=== PATIENT | female | born 1950 | race Caucasian/White ===

== ENCOUNTER → 2016-07-18 | Outpatient (CLI) | payer MEDICARE, OTHER ==
[~2016-07-18] MED LIST: AMLO5TAB4 PO; ASP81TEC PO; ASPI-983 PO; LISI1TAB PO; LISI1TAB8 PO; LOSA1TAB9 PO; LUTE1CAP4 PO; MELO-198 PO; MULT1TAB69 PO; OMEG1CAP58 PO; SIMV40TA4 PO
--- OUTSIDE RECORDS SUMMARY | 2016-07-18 13:24 | XMS REPORT | Continuity of Care Document ---
Author Author [facility] Organization [facility] Address Unknown Phone Unavailable Allergies Active Description Code Type Severity Reaction Onset Reported/Identified Relationship to Patient Clinical Status Yes meperidine HCl [id number] Drug Allergy Unknown N/A 01/12/2015 Yes Iodinated Contrast Media - IV Dye [id number] Drug Allergy Moderate RASH 12/23/2015 Yes adhesive tape [id number] Drug Allergy Mild RASH 12/23/2015 Yes meperidine HCl [id number] Drug Allergy Unknown NAUSEA 12/23/2015 Medications Problems Date Dx Coded Attending Type Code Diagnosis Diagnosed By 11/19/2014 Ot 611.72 11/19/2014 Ot V76.12 11/19/2014 Ot 610.0 11/19/2014 Ot 793.81 11/19/2014 Ot 793.89 11/19/2014 Ot 424.0 11/19/2014 Ot 786.09 11/19/2014 Ot 786.50 11/19/2014 Ot V76.12 11/19/2014 ANGELLA TEJEDA MD Ot V76.12 12/10/2014 ANGELLA TEJEDA MD Ot V76.12 12/29/2014 ANGELLA TEJEDA MD Ot V76.12 01/12/2015 LOLIS ZUÑIGA, BESSIE Goldstein Ot 211.3 BENIGN NEOPLASM LG BOWEL 01/12/2015 BESSIE DANIELLE MD Ot 530.10 ESOPHAGITIS NOS 01/12/2015 BESSIE DANIELLE MD Ot 562.10 DIVERTICULOSIS COLON (W/O MENT OF HEMORR 01/12/2015 LOLIS ZUÑIGA, BESSIE Goldstein Ot 787.20 DYSPHAGIA, UNSPECIFIED 01/12/2015 BESSIE DANIELLE MD Ot V76.51 SCREEN MAL NEOP-COLON 12/24/2015 AIDEE DICKINSON MD Ot F41.9 ANXIETY DISORDER, UNSPECIFIED 12/24/2015 AIDEE DICKINSON MD Ot I10 ESSENTIAL (PRIMARY) HYPERTENSION 12/24/2015 AIDEE DICKINSON MD Ot R00.1 BRADYCARDIA, UNSPECIFIED 12/24/2015 AIDEE DICKINSON MD Ot R06.00 DYSPNEA, UNSPECIFIED 12/24/2015 AIDEE DICKINSON MD Ot R07.9 CHEST PAIN, UNSPECIFIED 01/31/2016 Ot 793.81 MAMMOGRAPHIC MICROCLACIFICATION 01/31/2016 Ot 793.89 OTH (ABN) FINDINGS ON RADIOLOGICAL EXAMI 01/31/2016 Ot 424.0 MITRAL VALVE DISORDER 01/31/2016 Ot 786.09 RESPIRATORY ABNORM NEC 01/31/2016 Ot 786.50 CHEST PAIN NOS 01/31/2016 Ot V76.12 OTH SCREEN MAMMO-MALIGN NEOPLASM OF [place] 01/31/2016 ANGELLA TEJEDA MD Ot V76.12 OTH SCREEN MAMMO-MALIGN NEOPLASM OF [place] 01/31/2016 ANGELLA TEJEDA MD Ot V76.12 OTH SCREEN MAMMO-MALIGN NEOPLASM OF [place] 01/31/2016 Ot V72.84 EXAM PRE-OPERATIVE NOS 01/31/2016 Ot V76.51 SCREEN MAL NEOP-COLON 01/31/2016 Ot 793.81 MAMMOGRAPHIC MICROCLACIFICATION 01/31/2016 Ot 793.89 OTH (ABN) FINDINGS ON RADIOLOGICAL EXAMI 01/31/2016 Ot 424.0 MITRAL VALVE DISORDER 01/31/2016 Ot 786.09 RESPIRATORY ABNORM NEC 01/31/2016 Ot 786.50 CHEST PAIN NOS 01/31/2016 Ot V76.12 OTH SCREEN MAMMO-MALIGN NEOPLASM OF [place] 01/31/2016 ANGELLA TEJEDA MD Ot V76.12 OTH SCREEN MAMMO-MALIGN NEOPLASM OF [place] 01/31/2016 ANGELLA TEJEDA MD Ot V76.12 OTH SCREEN MAMMO-MALIGN NEOPLASM OF [place] 01/31/2016 Ot V72.84 EXAM PRE-OPERATIVE NOS 01/31/2016 Ot V76.51 SCREEN MAL NEOP-COLON 02/01/2016 KHADRA GARDNER Ot F41.9 ANXIETY DISORDER, UNSPECIFIED 02/01/2016 KHADRA GARDNER Ot I10 ESSENTIAL (PRIMARY) HYPERTENSION 02/01/2016 KHADRA GARDNER Ot R06.00 DYSPNEA, UNSPECIFIED 02/01/2016 JOCELYN CARROLL KHADRA K Ot R07.89 OTHER CHEST PAIN 02/01/2016 KHADRA GARDNER Ot F41.9 ANXIETY DISORDER, UNSPECIFIED 02/01/2016 KHADRA GARDNER Ot I10 ESSENTIAL (PRIMARY) HYPERTENSION 02/01/2016 JOCELYN CARROLL KHADRA K Ot R06.00 DYSPNEA, UNSPECIFIED 02/01/2016 KHADRA GARDNER Ot R07.89 OTHER CHEST PAIN 02/16/2016 AIDEE DICKINSON MD Ot E78.5 HYPERLIPIDEMIA, UNSPECIFIED 02/16/2016 AIDEE DICKINSON MD Ot F41.9 ANXIETY DISORDER, UNSPECIFIED 02/16/2016 AIDEE DICKINSON MD Ot I10 ESSENTIAL (PRIMARY) HYPERTENSION 02/16/2016 AIDEE DICKINSON MD Ot I25.10 ATHSCL HEART DISEASE OF [place] CORONARY 02/16/2016 AIDEE DICKINSON MD Ot R06.09 OTHER FORMS OF DYSPNEA 02/16/2016 AIDEE DICKINSON MD Ot R07.89 OTHER CHEST PAIN 02/16/2016 AIDEE DICKINSON MD Ot Z79.899 OTHER SENIOR LIVING (CURRENT) DRUG THERAPY 02/22/2016 KHADRA GARDNER Ot F41.9 ANXIETY DISORDER, UNSPECIFIED 02/22/2016 KHADRA GARDNER Ot I10 ESSENTIAL (PRIMARY) HYPERTENSION 02/22/2016 KHADRA GARDNER Ot R06.00 DYSPNEA, UNSPECIFIED 02/22/2016 KHADRA GARDNER Ot R07.89 OTHER CHEST PAIN Procedures Results Test Result Range Automated blood complete blood count (hemogram) panel - 12/23/15 10:10 Blood leukocytes automated count (number/volume) 7.1 10*3/ uL 4.3-11.0 Blood erythrocytes automated count (number/volume) 4.91 10*6 /uL 4.35-5.85 Venous blood hemoglobin measurement (mass/volume) 15.0 g/dL 11.5-16.0 Blood hematocrit (volume fraction) 44 % 35-52 Automated erythrocyte mean corpuscular volume 90 [foz_us] 80-99 Automated erythrocyte mean corpuscular hemoglobin (mass per erythrocyte) 31 pg 25-34 Automated erythrocyte mean corpuscular hemoglobin concentration measurement ( mass/volume) 34 g/dL 32-36 Automated erythrocyte distribution width ratio 13.2 % 10.0-14.5 Automated blood platelet count (count/volume) 211 10*3/uL 130-400 Automated blood platelet mean volume measurement 9.2 [foz_us ] 7.4-10.4 PT panel in platelet poor plasma by coagulation assay - 12/23/15 10:10 Prothrombin time (PT) in platelet poor plasma by coagulation assay 12.2 s 12.2-14.7 INR in platelet poor plasma or blood by coagulation assay 0.9 0.8-1.4 Activated partial thromboplastin time (aPTT) in platelet poor plasma bycoagulation assay - 12/23/15 10:10 Activated partial thromboplastin time (aPTT) in platelet poor plasma bycoagulation assay 26 s 24-35 Comprehensive metabolic panel - 12/23/15 10:10 Serum or plasma sodium measurement (moles/volume) 140 mmol/ L 135-145 Serum or plasma potassium measurement (moles/volume) 3.8 mmol/L 3.6-5.0 Serum or plasma chloride measurement (moles/volume) 103 mmol /L 98-107 Carbon dioxide 28 mmol/L 21-32 Serum or plasma anion gap determination (moles/volume) 9 mmol/L 5-14 Serum or plasma urea nitrogen measurement (mass/volume) 18 mg/dL 7-18 Serum or plasma creatinine measurement (mass/volume) 0.68 mg /dL 0.60-1.30 Serum or plasma urea nitrogen/creatinine mass ratio 26 NRG Serum or plasma creatinine measurement with calculation of estimated glomerular filtration rate > NRG Serum or plasma glucose measurement (mass/volume) 94 mg/dL 70-105 Serum or plasma calcium measurement (mass/volume) 9.7 mg/dL 8.5-10.1 Serum or plasma total bilirubin measurement (mass/volume) 0.6 mg/dL 0.1-1.0 Serum or plasma alkaline phosphatase measurement (enzymatic activity/volume) 105 U/L 40-136 Serum or plasma aspartate aminotransferase measurement (enzymatic activity/ volume) 26 U/L 5-34 Serum or plasma alanine aminotransferase measurement (enzymatic activity/volume ) 25 U/L 0-55 Serum or plasma protein measurement (mass/volume) 7.8 g/dL 6.4-8.2 Serum or plasma albumin measurement (mass/volume) 3.9 g/dL 3.2-4.5 Serum or plasma troponin i.cardiac measurement (mass/volume) - 12/23/15 10:10 Serum or plasma troponin i.cardiac measurement (mass/volume) < ng/mL <0.30 Lipid 1996 panel - 12/23/15 10:10 Serum or plasma triglyceride measurement (mass/volume) 213 mg/dL <150 Serum or plasma cholesterol measurement (mass/volume) 218 mg /dL < 200 Serum or plasma cholesterol in HDL measurement (mass/volume) 52 mg/dL 40-60 Cholesterol in LDL [mass/volume] in serum or plasma by direct assay 141 mg/dL 1-129 Serum or plasma cholesterol in VLDL measurement (mass/volume) 43 mg/dL 5-40 Serum or plasma lithium measurement (moles/volume) - 12/23/15 10:10 BNP level 26.0 pg/mL <100.0 THYROID STIMULATING HORMONE - 12/23/15 10:10 THYROID STIMULATING HORMONE 1.91 u[iU]/mL 0.35-4.94 Methicillin resistant Staphylococcus aureus (MRSA) screening culture - 13:20 Methicillin resistant Staphylococcus aureus (MRSA) screening culture NEG NRG Automated blood complete blood count (hemogram) panel - 02/16/16 07:24 Blood leukocytes automated count (number/volume) 7.7 10*3/ uL 4.3-11.0 Blood erythrocytes automated count (number/volume) 4.89 10*6 /uL 4.35-5.85 Venous blood hemoglobin measurement (mass/volume) 15.1 g/dL 11.5-16.0 Blood hematocrit (volume fraction) 45 % 35-52 Automated erythrocyte mean corpuscular volume 91 [foz_us] 80-99 Automated erythrocyte mean corpuscular hemoglobin (mass per erythrocyte) 31 pg 25-34 Automated erythrocyte mean corpuscular hemoglobin concentration measurement ( mass/volume) 34 g/dL 32-36 Automated erythrocyte distribution width ratio 13.8 % 10.0-14.5 Automated blood platelet count (count/volume) 239 10*3/uL 130-400 Automated blood platelet mean volume measurement 9.5 [foz_us ] 7.4-10.4 Complete urinalysis with reflex to culture - 02/16/16 07:24 Urine color determination YELLOW NRG Urine clarity determination CLEAR NRG Urine pH measurement by test strip 6 5- 9 Specific gravity of urine by test strip 1.020 1.016-1.022 Urine protein assay by test strip, semi-quantitative NEGATIVE NEGATIVE Urine glucose detection by automated test strip NEGATIVE NEGATIVE Erythrocytes detection in urine sediment by light microscopy 2+ NEGATIVE Urine ketones detection by automated test strip NEGATIVE NEGATIVE Urine nitrite detection by test strip NEGATIVE NEGATIVE Urine total bilirubin detection by test strip NEGATIVE NEGATIVE Urine urobilinogen measurement by automated test strip (mass/volume) NORMAL NORMAL Urine leukocyte esterase detection by dipstick NEGATIVE NEGATIVE Automated urine sediment erythrocyte count by microscopy (number/high power field) NONE NRG Automated urine sediment leukocyte count by microscopy (number/high power field ) [HPF] NRG Bacteria detection in urine sediment by light microscopy NEGATIVE NRG Squamous epithelial cells detection in urine sediment by light microscopy 5-10 NRG Crystals detection in urine sediment by light microscopy NONE NRG Casts detection in urine sediment by light microscopy NONE NRG Mucus detection in urine sediment by light microscopy NEGATIVE NRG Complete urinalysis with reflex to culture NO NRG PT panel in platelet poor plasma by coagulation assay - 02/16/16 07:24 Prothrombin time (PT) in platelet poor plasma by coagulation assay 11.9 s 12.2-14.7 INR in platelet poor plasma or blood by coagulation assay 0.9 0.8-1.4 Activated partial thromboplastin time (aPTT) in platelet poor plasma bycoagulation assay - 02/16/16 07:24 Activated partial thromboplastin time (aPTT) in platelet poor plasma bycoagulation assay 27 s 24-35 Comprehensive metabolic panel - 02/16/16 07:24 Serum or plasma sodium measurement (moles/volume) 140 mmol/ L 135-145 Serum or plasma potassium measurement (moles/volume) 3.5 mmol/L 3.6-5.0 Serum or plasma chloride measurement (moles/volume) 104 mmol /L 98-107 Carbon dioxide 23 mmol/L 21-32 Serum or plasma anion gap determination (moles/volume) 13 mmol/L 5-14 Serum or plasma urea nitrogen measurement (mass/volume) 21 mg/dL 7-18 Serum or plasma creatinine measurement (mass/volume) 0.77 mg /dL 0.60-1.30 Serum or plasma urea nitrogen/creatinine mass ratio 27 NRG Serum or plasma creatinine measurement with calculation of estimated glomerular filtration rate > NRG Serum or plasma glucose measurement (mass/volume) 101 mg/dL 70-105 Serum or plasma calcium measurement (mass/volume) 9.5 mg/dL 8.5-10.1 Serum or plasma total bilirubin measurement (mass/volume) 0.5 mg/dL 0.1-1.0 Serum or plasma alkaline phosphatase measurement (enzymatic activity/volume) 109 U/L 40-136 Serum or plasma aspartate aminotransferase measurement (enzymatic activity/ volume) 32 U/L 5-34 Serum or plasma alanine aminotransferase measurement (enzymatic activity/volume ) 40 U/L 0-55 Serum or plasma protein measurement (mass/volume) 8.0 g/dL 6.4-8.2 Serum or plasma albumin measurement (mass/volume) 4.2 g/dL 3.2-4.5 Methicillin resistant Staphylococcus aureus (MRSA) screening culture - 07:24 Methicillin resistant Staphylococcus aureus (MRSA) screening culture NEG NRG Encounters ACCT No. Visit Date/Time Discharge Status Pt. Type Provider Facility Loc./Unit Complaint [id number] 02/16/2016 06:49:00 2015 13:42:00 DIS Outpatient AIDEE DICKINSON MD [facility] CATH ABN STRESS,HTN,CP,SOB [id number] 12/23/2015 09:46:00 2015 12:45:00 DIS Inpatient AIDEE DICKINSON MD [facility] ICU HYPERTENSIVE URGENCY [id number] 01/12/2015 07:44:00 2014 11:25:00 DIS Outpatient BESSIE DANIELLE MD [facility] SDC SCREENING [id number] 11/19/2014 09:53:00 2014 23:59:59 CLS Outpatient ANGELLA TEJEDA MD [facility] RAD SCREENING [id number] 09/12/2013 09:58:00 2013 23:59:59 CLS Outpatient ANGELLA TEJEDA MD [facility] RAD SCREENING [id number] 01/31/2016 07:31:00 ACT Outpatient KHADRA SAVAGE [facility] CARD CHEST PAIN,HTN, ANXIETY [id number] 01/06/2015 06:29:00 Document Registration [id number] 11/19/2014 09:44:00 Document Registration [id number] 08/01/2012 10:22:00 Document Registration [id number] 08/15/2011 15:13:00 Document Registration [id number] 12/07/2010 09:03:00 Document Registration [id number] 08/10/2010 08:02:00 Document Registration [id number] 07/28/2010 09:41:00 Document Registration
--- NOTE | 2016-07-20 19:21 | Diagnostic Imaging Report ---
Bilateral screening mammogram. The current study was also evaluated with a Computer Aided Detection (CAD) system. INDICATION: Screening. No current complaints stated on the questionnaire. COMPARISON: 11/19/2014. FINDINGS: The breasts are composed of scattered fibroglandular densities. There are occasional benign-appearing calcifications. Allowing for technique and positional differences, no suspicious change is seen. IMPRESSION: No significant change. ACR BI-RADS Category 2: Benign findings. Result letter will be mailed to the patient. Note: At least 10% of breast cancer is not imaged by mammography. Dictated by: Dictated on workstation # [id number]
== END ==
LOC: RAD 13:20
PROVIDERS: ATTEND Obstetrics & Gynecology
DX: Z12.31 Encounter for screening mammogram for malignant neoplasm of breast (principal)
CPT/HCPCS: 77067

== ENCOUNTER → 2016-10-25 | Outpatient (CLI) | payer MEDICARE, OTHER ==
[~2016-10-25] MED LIST changes: +CATHETER FLUSH 10 ML SYR IV PRN; +IOHEXOL 350 MG/ML 150 ML (OMNIPAQUE 350) VIAL IV ONE; +NS 100 ML (IVPB) BAG IV ONE
[2016-10-25 10:06] LABS: BLOOD UREA NITROGEN 22 MG/DL (7-18); BUN/CREATININE RATIO 30 (0-20); CREATININE SERUM 0.74 MG/DL (0.60-1.30); GFR ESTIMATED > 60
--- NOTE | 2016-10-25 11:57 | Diagnostic Imaging Report ---
PROCEDURE: CT angiography of the abdomen and chest with and without contrast. TECHNIQUE: After intravenous administration of contrast, thin section axial CT angiography of the abdomen and chest were obtained. Multiple MIP reformats were provided. INDICATION: Chest pain. Dyspnea. CONTRAST: 125 mL of Omnipaque 350 is administered intravenously. FINDINGS: CTA chest: The pulmonary arteries are well opacified with no filling defects to suggest pulmonary embolism. The thoracic aorta is normal in caliber. There is no dissection or aneurysm. The lungs demonstrate no significant consolidation. There is mild atelectasis in the lung bases. No mass or suspicious nodule is identified. The heart size is normal. There is no mediastinal mass or lymphadenopathy. There is no hilar adenopathy. No axillary lymphadenopathy is seen. The osseous structures demonstrate right convexity scoliosis and degenerative changes. CTA abdomen: The abdominal aorta is normal in caliber. There is a mild osteoarthritic plaque with no dissection, aneurysm or significant stenosis. The celiac trunk, the SMA, and the right renal artery are patent. The left renal artery demonstrates an ostial plaque with mild stenosis suggested. The ROSALES is patent. The aortic bifurcation and the proximal aspect of the common iliac arteries are also patent. There is a 2.8 cm simple cyst in the mid left kidney and 2.8 cm simple cyst in the upper pole of the right kidney. Other smaller cysts are seen in the kidneys. There is symmetric enhancement and contrast excretion in the kidneys. The liver demonstrate foci of hyper enhancement in subcapsular location anteriorly in segment 4 and posteriorly in the right hepatic lobe likely related to perfusional variation and shunting with no definite underlying mass. The gallbladder, the pancreas, the spleen, and adrenal glands appear unremarkable. No fluid collection or free fluid is seen in the abdomen. The osseous structures demonstrate scoliosis convex to the left with prominent degenerative changes. IMPRESSION: CTA chest: No pulmonary embolism or aortic dissection. Minimal bibasilar atelectasis. CTA abdomen: Scoliosis and degenerative changes. No significant abnormality otherwise. Dictated by: Dictated on workstation # [id number]
== END ==
LOC: RAD 08:57
PROVIDERS: ATTEND Physician Assistant
DX: M41.9 Scoliosis, unspecified (principal); M47.819 Spondylosis without myelopathy or radiculopathy, site unspecified; I25.10 Atherosclerotic heart disease of native coronary artery without angina pectoris; R07.89 Other chest pain; R06.00 Dyspnea, unspecified; I10 Essential (primary) hypertension
CPT/HCPCS: 36415; 71275; 74175; 82565; 84520

== ENCOUNTER → 2016-11-01 | Outpatient (CLI) | payer MEDICARE, OTHER ==
[~2016-11-01] MED LIST changes: -CATHETER FLUSH 10 ML SYR IV PRN; -IOHEXOL 350 MG/ML 150 ML (OMNIPAQUE 350) VIAL IV ONE; -NS 100 ML (IVPB) BAG IV ONE; +RT-ALBUTEROL SULF 2.5 MG/3 ML PRE-MIX VIAL IH ONE
== END ==
LOC: RT 12:54
PROVIDERS: ATTEND Nurse Practitioner Family
DX: R06.00 Dyspnea, unspecified (principal); J30.9 Allergic rhinitis, unspecified
CPT/HCPCS: 94060; 94640; 94726; 94729

== ENCOUNTER 2016-11-16 20:00 | Outpatient (CLI) | payer MEDICARE, OTHER ==
[~2016-11-16 20:00] MED LIST changes: -RT-ALBUTEROL SULF 2.5 MG/3 ML PRE-MIX VIAL IH ONE
== END 2016-11-17 06:30 | disposition home or self-care (01) ==
LOC: SLEEP 20:00
PROVIDERS: ATTEND Nurse Practitioner Family
DX: G47.33 Obstructive sleep apnea (adult) (pediatric) (principal); I10 Essential (primary) hypertension
CPT/HCPCS: 95810

== ENCOUNTER → 2017-09-28 | Outpatient (CLI) | payer MEDICARE, OTHER ==
--- NOTE | 2017-09-28 14:08 | Diagnostic Imaging Report ---
INDICATION: Routine screening. COMPARISON: Comparison is made with prior exam from 07/18/2016 and 11/19/2014. TECHNIQUE: 2D and 3D bilateral screening mammography was performed with computer-aided detection (CAD) system. FINDINGS: Scattered fibroglandular densities are noted. There is asymmetry in the breast parenchyma, being greater on the left. Scattered benign-appearing calcifications are seen bilaterally. Benign-appearing nodular densities bilaterally appear stable. No spiculated mass or malignant appearing microcalcifications are seen. The axillae are unremarkable. IMPRESSION: No mammographic features suspicious for malignancy are identified. ACR BI-RADS Category 2: Benign findings. Result letter will be mailed to the patient. Note: At least 10% of breast cancer is not imaged by mammography. Dictated by: Dictated on workstation # [id number]
== END ==
LOC: RAD 09:59
PROVIDERS: ATTEND Internal Medicine
DX: Z12.31 Encounter for screening mammogram for malignant neoplasm of breast (principal)
CPT/HCPCS: 77067

== ENCOUNTER → 2018-09-17 | Outpatient (CLI) | payer MEDICARE, OTHER | LOC: CARD 09:09 | PROVIDERS: ATTEND Internal Medicine Cardiovascular Disease | DX: I25.10 Atherosclerotic heart disease of native coronary artery without angina pectoris (principal); R06.09 Other forms of dyspnea; I10 Essential (primary) hypertension; G47.9 Sleep disorder, unspecified; I34.0 Nonrheumatic mitral (valve) insufficiency | CPT/HCPCS: 93306 ==

== ENCOUNTER → 2019-01-14 | Outpatient (CLI) | payer MEDICARE, OTHER ==
--- NOTE | 2019-01-14 18:42 | Diagnostic Imaging Report ---
INDICATION: Routine screening. COMPARISON: Comparison is made with prior mammograms from 09/28/2017 and 07/18/2016. TECHNIQUE: 2-D and 3-D bilateral screening mammography was performed. The current study was also evaluated with a Computer Aided Detection (CAD) system. 3-D tomosynthesis was also performed and reviewed. FINDINGS: Scattered fibroglandular densities are identified bilaterally. Benign calcifications are again noted bilaterally. Parenchymal asymmetry, greatest in the left breast is similar to prior study. Benign nodular densities bilaterally also appear stable. No dominant mass or malignant-appearing microcalcifications are seen. Axillae are unremarkable. IMPRESSION: No mammographic features suspicious for malignancy are identified. ACR BI-RADS Category 2: Benign findings. Result letter will be mailed to the patient. Note: At least 10% of breast cancer is not imaged by mammography. Dictated by: Dictated on workstation # [id number]
== END ==
LOC: RAD 10:38
PROVIDERS: ATTEND Obstetrics & Gynecology
DX: Z12.31 Encounter for screening mammogram for malignant neoplasm of breast (principal)
CPT/HCPCS: 77067

== ENCOUNTER → 2021-01-11 | Outpatient (CLI) | payer MEDICARE, OTHER ==
[~2021-01-11] MED LIST changes: +ASPI-1238 PO; -ASPI-983 PO; +GADOBUTROL 10 MMOL/10 ML (GADAVIST) VIAL IV ONE; +GADOBUTROL 7.5 MMOL/7.5 ML (GADAVIST) VIAL IV ONE; +LISI1TAB46 PO; -LISI1TAB8 PO; +MULT-567 PO; -MULT1TAB69 PO
--- NOTE | 2021-01-11 13:03 | Diagnostic Imaging Report ---
INDICATION: Monoclonal gammopathy with abnormal images of the skull. This study is performed to evaluate for multiple myeloma. TECHNIQUE: The serum blood glucose level at the time of injection was 119 mg/dL. The patient was administered 12.8 mCi of F-18 FDG intravenously in the left antecubital location and PET imaging was performed from the top of the skull to the mid thighs. Noncontrast CT was also performed for attenuation correction and anatomic correlation. FINDINGS: There is symmetric activity throughout the brain. The soft tissues of the neck are unremarkable. No mediastinal or hilar hypermetabolism is identified. No pulmonary parenchymal hypermetabolism is identified. There is physiologic activity throughout the GI and tracts of the abdomen and pelvis. No suspicious hypermetabolism is detected. IMPRESSION: Unremarkable PET/CT study. No suspicious regions of hypermetabolism are identified. Dictated by: Dictated on workstation # [id number]
--- NOTE | 2021-01-11 13:23 | Diagnostic Imaging Report ---
PROCEDURE: MR imaging of the brain with and without contrast. TECHNIQUE: Multiplanar, multisequence MR imaging of the brain was performed with and without contrast. INDICATION: Monoclonal gammopathy of uncertain significance. Abnormal outside brain imaging which is not available for comparison. COMPARISON: None. FINDINGS: 0.5 cm mixed T2/T1 hyperintense lesion in the lateral right frontal lobe with peripheral hemosiderin deposition. This is associated with a developmental venous anomaly. No significant adjacent parenchymal edema. No mass effect. No other abnormal intracranial signal. Mild generalized parenchymal volume loss is age appropriate. No other abnormal intracranial enhancement. No restricted water diffusion. No other hemosiderin deposition. Normal morphology of the major midline structures, sella, posterior fossa and cerebellar pontine angle. No hydrocephalus or extra-axial fluid collections. Normal intracranial flow voids. The orbits are negative. Mild mucosal thickening in the right maxillary and left sphenoid sinuses. The mastoids are clear. Normal bone marrow signal. IMPRESSION: 1. 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 No significant adjacent parenchymal edema. 2. No acute intracranial MRI findings. Age-appropriate mild parenchymal volume loss. Dictated by: Dictated on workstation # [id number]
== END ==
LOC: RAD 08:03
PROVIDERS: ATTEND Internal Medicine Hematology & Oncology
DX: G31.1 Senile degeneration of brain, not elsewhere classified (principal); D47.2 Monoclonal gammopathy; G93.9 Disorder of brain, unspecified
CPT/HCPCS: 70553; 78815; A9552

== ENCOUNTER 2021-02-16 09:34 | Day surgery (SDC) | payer MEDICARE, OTHER ==
[~2021-02-16] VITALS: Ht 165 cm; Wt 103.9 kg
[2021-02-16] VITALS (11 sets, daily range): BP systolic 127–187; BP diastolic 69–90
[~2021-02-16 09:34] MED LIST changes: -GADOBUTROL 10 MMOL/10 ML (GADAVIST) VIAL IV ONE; -GADOBUTROL 7.5 MMOL/7.5 ML (GADAVIST) VIAL IV ONE
[2021-02-16 10:03] LABS: ABSOLUTE RETIC # 117 10e9/uL (24-90); BASOPHILS % (AUTO) 1 % (0-10); EOSINOPHILS # (AUTO) 0.2 10^3/uL (0.0-0.3); EOSINOPHILS % (AUTO) 3 % (0-10); HEMATOCRIT 46 % (35-52); HEMOGLOBIN 15.2 g/dL (11.5-16.0); LYMPHOCYTES # (AUTO) 2.2 10^3/uL (1.0-4.0); LYMPHOCYTES % (AUTO) 33 % (12-44); MEAN CORPUSCULAR HEMOGLOBIN 31 pg (25-34); MEAN CORPUSCULAR HGB CONC 33 g/dL (32-36); MEAN CORPUSCULAR VOLUME 93 fL (80-99); MEAN PLATELET VOLUME 8.9 fL (9.0-12.2); MONOCYTES # (AUTO) 0.6 10^3/uL (0.0-1.0); MONOCYTES % (AUTO) 10 % (0-12); NEUTROPHILS # (AUTO) 3.6 10^3/uL (1.8-7.8); NEUTROPHILS % (AUTO) 53 % (42-75); PLATELET COUNT 265 10^3/uL (130-400); RETICULOCYTE % 2.39 % (0.50-2.40); WHITE BLOOD COUNT 6.7 10^3/uL (4.3-11.0)
[2021-02-16] MEDS ORDERED: NS IV 1000 ML 1,000 ML IV STA (10:26)
[2021-02-16 10:30] LABS: INR 0.9 (0.8-1.4); PROTHROMBIN TIME PATIENT 12.8 SEC (12.2-14.7)
[2021-02-16] MEDS ORDERED: LIDOCAINE 1% INJ 20 ML 20 ML VIAL INJ ONE (10:30)
[2021-02-16] MEDS ORDERED: fentaNYL INJ 100 MCG/2 ML AMP IVP ONE (10:30)
[2021-02-16] MEDS ORDERED: MIDAZOLAM 2 MG/2 ML (VERSED) VIAL IVP ONE (10:30)
[2021-02-16] MEDS ORDERED: NS IV 1000 ML 1,000 ML ONE (10:38)
[2021-02-16] MEDS ORDERED: MIDAZOLAM 2 MG/2 ML (VERSED) VIAL ONE (10:38)
[2021-02-16] MEDS ORDERED: fentaNYL INJ 100 MCG/2 ML AMP ONE (10:38)
[2021-02-16 10:40] LABS: EOSINOPHILS % (MANUAL) 3 %; LYMPHOCYTES % (MANUAL) 31 %; MONOCYTES % (MANUAL) 10 %; NEUTROPHILS % (MANUAL) 56 %; RBC MORPH NORMAL
[2021-02-16] MEDS ORDERED: METO50TA7 PO (10:52)
[2021-02-16] MEDS ORDERED: TURM500C4 PO (10:58)
--- NOTE | 2021-02-16 12:08 | Pre-Op Note & Conscious Sedat ---
Pre-Operative Progress Note H&P Reviewed The H&P was reviewed, patient examined and no changes noted. Date H&P Reviewed: Feb 16, 2021 Time H&P Reviewed: 10:00 Pre-Op Diagnosis: monoclonal gammopathy Conscious Sedation Pre-Proced Time 10:00 ASA Score 2 For ASA 3 and 4: Consider anesthesia and medical clearance. Also, for patients with a history of failed moderate sedation consider anesthesia. Airway Lungs Heart ASA score ASA 1: a normal healthy patient ASA 2: a patient with a mild systemic disease (mid diabetes, controlled hyper tension, obesity ASA 3: a patient with a severe systemic disease that limits activity (angina, COPD, prior Myocardial infarction) ASA 4: a patient with an incapacitating disease that is a constant threat to life (CHF, renal failure) ASA 5: a moribund patient not expected to survive 24 hrs. (ruptured aneurysm) ASA 6: a declared brain- patient whose organs are being harvested. For emergent operations, add the letter E after the classification Mallampati Classification Grade 2 Sedation Plan Analgesia, Amnesia, Plan communicated to team members, Discussed options with patient/fam, Discussed risks with patient/fam The patient is an appropriate candidate to undergo the planned procedure, sedat ion, and anesthesia. The patient immediately re-assessed prior to indication. DANETTE SINGH MD Feb 16, 2021 12:08
[2021-02-16] MEDS ORDERED: HYDROcodone/APAP 5 MG/325 MG (LORTAB) TAB PO PRN (12:15)
--- NOTE | 2021-02-16 13:04 | Diagnostic Imaging Report ---
Indication: Monoclonal gammopathy. Patient brought to the CT suite and placed on table in prone position. Axial imaging through the pelvis was performed to evaluate appropriate entry site. Low back was prepped and draped usual sterile fashion. Small amount 1% lidocaine was utilized for local anesthesia. Procedure was performed utilizing conscious sedation with radiology nursing and constant patient monitoring. Patient was given total of 100 mg of fentanyl intravenously and 2 mg of Versed intravenously. Total procedure time was 5 minutes. The 11-gauge bone marrow needle was advanced and placed with its tip along the posterior cortex of the right iliac bone. Needle was advanced through the cortex utilizing a bone marrow drill. 2 bone marrow aspirates were obtained. Next, the drill was utilized to obtain a bone marrow core biopsy. Needle was removed and hemostasis was obtained using manual compression. Patient tolerated procedure well and left the department in stable condition. IMPRESSION: Successful CT-guided bone marrow aspiration and core biopsy, utilizing conscious sedation. Patient tolerated procedure well. Pathology results are currently pending. Dictated by: Dictated on workstation # [id number]
== END 2021-02-16 14:15 | disposition home or self-care (01) ==
LOC: RAD 09:34 → SDC 11:47 → RAD 14:15
PROVIDERS: ATTEND Internal Medicine Hematology & Oncology
DX: C90.00 Multiple myeloma not having achieved remission (principal); C85.10 Unspecified B-cell lymphoma, unspecified site; C43.62 Malignant melanoma of left upper limb, including shoulder; D47.2 Monoclonal gammopathy; M19.90 Unspecified osteoarthritis, unspecified site; Z79.899 Other long term (current) drug therapy
CPT/HCPCS: 36415; 38222; 77012; 85007; 85027; 85045; 85610; 85730; 88237; 88264; 88377; 99156

== ENCOUNTER 2021-03-16 09:36 | Outpatient (RCR) | payer MEDICARE, OTHER ==
[2020-12-27 14:05] LABS: BASOPHILS # (AUTO) 0.1 10^3/uL (0.0-0.1); BASOPHILS % (AUTO) 1 % (0-10); EOSINOPHILS # (AUTO) 0.2 10^3/uL (0.0-0.3); EOSINOPHILS % (AUTO) 2 % (0-10); HEMATOCRIT 44 % (35-52); HEMOGLOBIN 14.6 g/dL (11.5-16.0); LYMPHOCYTES # (AUTO) 2.5 10^3/uL (1.0-4.0); LYMPHOCYTES % (AUTO) 28 % (12-44); MEAN CORPUSCULAR HEMOGLOBIN 31 pg (25-34); MEAN CORPUSCULAR HGB CONC 33 g/dL (32-36); MEAN CORPUSCULAR VOLUME 93 fL (80-99); MEAN PLATELET VOLUME 9.3 fL (9.0-12.2); MONOCYTES # (AUTO) 0.9 10^3/uL (0.0-1.0); MONOCYTES % (AUTO) 10 % (0-12); NEUTROPHILS # (AUTO) 5.3 10^3/uL (1.8-7.8); NEUTROPHILS % (AUTO) 59 % (42-75); PLATELET COUNT 233 10^3/uL (130-400); WHITE BLOOD COUNT 9.1 10^3/uL (4.3-11.0)
[2020-12-27 14:25] LABS: ALBUMIN 3.8 GM/DL (3.2-4.5); BILIRUBIN,TOTAL 0.5 MG/DL (0.1-1.0); CALCIUM 10.1 MG/DL (8.5-10.1); CREATININE SERUM 0.84 MG/DL (0.60-1.30); POTASSIUM 3.9 MMOL/L (3.6-5.0); TOTAL PROTEIN 7.6 GM/DL (6.4-8.2)
[2021-01-03 06:22] LABS: IMMUNOFIX PATH REPORT NUMBER Complete (Complete)
[~2021-03-16 09:36] MED LIST changes: +METO50TA7 PO; +TURM500C4 PO
== END 2021-03-27 | disposition home or self-care (01) ==
LOC: ONC 09:36
PROVIDERS: ATTEND Internal Medicine Hematology & Oncology
DX: C43.9 Malignant melanoma of skin, unspecified (principal); D47.2 Monoclonal gammopathy
CPT/HCPCS: 80053; 82784 ×3; 83615; 83883; 84165; 85025; 86334; G0463; 84155; 99213; 99214

== ENCOUNTER 2021-04-06 17:43 | Emergency (ER) | payer MEDICARE, OTHER ==
[~2021-04-06] VITALS: Ht 165.1 cm; Wt 102.1 kg
--- NOTE | 2021-04-06 18:37 | ED General ---
General Chief Complaint: Cardiac/General Problems Stated Complaint: HEADACHE,NAUSEA,HIGH BP Nursing Triage Note: PT AMBULATE TO ROOM FS05 WITH C/O HYPERTENSION, SOB, AND CP X3 DAYS. PT REPORTS SHE WAS INSTRUCTED TO COME TO ED BY HER PCP. Source of Information: Patient Exam Limitations: No Limitations (SISI MATUTE MD) History of Present Illness Date Seen by Provider: Apr 06, 2021 Time Seen by Provider: 18:10 Initial Comments Patient is a 71-year-old female who presents to the emergency department today with a chief complaint of feelings of generalized fatigue, shortness of breath when walking up and down 2 or 3 steps, severe headache, feeling little dizzy, some left upper chest pain in the area of her clavicle and her left lateral neck. Onset of symptoms over the last couple of days. Patient states that she has been seeing her medical providers in recent days for general medical evaluations and noted that her blood pressures have been in the 200/100 ranges. Patient called her primary care physician this evening and reported her symptoms, he advised her to come to the emergency room. Patient has not taken any extra medications for her blood pressure. She denies any recent illnesses such as fevers, chills, cough. No sore throat. No diarrhea or urinary complaints. No rashes, joint pain or swelling. She is not Covid vaccinated. She has not missed or skipped any of her medications All other review of systems reviewed and negative except as stated Timing/Duration: 2-3 Days Severity: Moderate Associated Systoms: Chest Pain, Headaches, Malaise, Shortness of Air, Weakness (SISI MATUTE MD) Initial Comments Patient reports history of multiple myeloma and recent diagnosis of small cell lymphoma. (YOSEPH WARNER MD) Allergies and Home Medications Allergies Coded Allergies: Iodinated Contrast Media - IV Dye (Verified Allergy, Intermediate, RASH, 12/23/15) adhesive tape (Verified Allergy, Mild, RASH, 12/23/15) meperidine HCl (Verified Allergy, Unknown, NAUSEA, 12/23/15) Patient Home Medication List Home Medication List Reviewed: Yes (SISI MATUTE MD) Amoxicillin (Amoxicillin) 500 Mg Capsule, 1,000 MG PO BID Prescribed by: YOSEPH HIRSCH on 04/06/212020 Losartan/Hydrochlorothiazide (Hyzaar 100-12.5 Tablet) 1 Each Tablet, 1 EACH PO DAILY, (Reported) Entered as Reported by: WILLA PABLO on 02/16/16 0752 Lutein/Zeaxanthin (Lutein-Zeaxanthin 25-5 mg Sfgl) 1 Each Capsule, 1 EACH PO DAILY, (Reported) Entered as Reported by: WILLA PABLO on 02/16/16 0752 Metoprolol Succinate (Metoprolol Succinate) 50 Mg Tab.er.24h, 50 MG PO DAILY, (Reported) Entered as Reported by: FERCHO DUCKWORTH on 02/16/21 1052 Multivitamin (Multivitamins) 1 Each Tablet, 1 TAB PO DAILY, (Reported) Entered as Reported by: JOSE LUIS OSORIO on 12/23/15 1244 [place]-3 Fatty Acids/Fish Oil ([place] 3 1,000 mg Softgel) 1 Each Capsule, 1 EACH PO TID, (Reported) Entered as Reported by: WILLA PABLO on 02/16/16 0752 Turmeric/Turmeric Root Extract (Turmeric 500 mg Capsule) 1 Each Capsule, 1 EACH PO DAILY, (Reported) Entered as Reported by: FERCHO DUCKWORTH on 02/16/21 1058 Review of Systems Review of Systems Constitutional: see HPI EENTM: no symptoms reported Respiratory: dyspnea on exertion Cardiovascular: chest pain Gastrointestinal: no symptoms reported Genitourinary: no symptoms reported : No Musculoskeletal: joint pain (Chronic bilateral shoulder pain) Skin: no symptoms reported Psychiatric/Neurological: No Symptoms Reported (SISI MATUTE MD) All Other Systems Reviewed Negative Unless Noted: Yes (SISI MATUTE MD) Past Ungbxuq-Vdkztl-Brytgz Hx Patient Social History Tobacco Use?: No Smoking Status: Never a Smoker Smokeless Tobacco Frequency: Never a User Use of E-Cig and/or Vaping dev: No Use of E-Cig and/or Vaping Lex: Never a User Substance use?: No Alcohol Use?: No Pt feels they are or have been: No (SISI MATUTE MD) Immunizations Up To Date Tetanus Booster (TDap): Less than 5yrs (SISI MATUTE MD) Seasonal Allergies Seasonal Allergies: No (SISI MATUTE MD) Past Medical History Reproductive Disorders: No Adverse Reaction/Blood Tranf: No (SISI MATUTE MD) Surgeries: Yes Cardiac (Heart cath without interventions), Hysterectomy, Orthopedic (Knee, foot, carpal tunnel) Respiratory: No Cardiac: Yes Hypertension 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 0.0oz. 91.965812xd; 37.00 BMI Method: General Appearance: No Apparent Distress, WD/WN Eyes: Bilateral Eye Normal Inspection, Bilateral Eye PERRL, Bilateral Eye EOMI HEENT: PERRL/EOMI Neck: Full Range of Motion, Normal Inspection, Non Tender, Supple Respiratory: Chest Non Tender, Lungs Clear, Normal Breath Sounds, No Accessory Muscle Use, No Respiratory Distress Cardiovascular: Regular Rate, Rhythm, Normal Peripheral Pulses, Other (Initially her blood pressures in the 200/105 range, as I have been in the room with her her blood pressure is now 170/89.) Gastrointestinal: Normal Bowel Sounds, No Pulsatile Mass, Non Tender, Soft Extremity: Normal Capillary Refill, Normal Inspection, Normal Range of Motion, Non Tender Neurologic/Psychiatric: Alert, Oriented x3, No Motor/Sensory Deficits, Normal Mood/Affect, continuity tester II-XII Norm as Tested Skin: Normal Color, Warm/Dry (SISI MATUTE MD) Progress/Results/Core Measures Suspected Sepsis SIRS Temperature: Pulse: 74 Respiratory Rate: 18 Laboratory Tests 04/06/21 18:19: White Blood Count 9.1 Blood Pressure 201 /78 Mean: 119 Laboratory Tests 04/06/21 18:19: Platelet Count 272 (SISI MATUTE MD) Results/Orders Lab Results Laboratory Tests Test 04/06/21 18:19 Range/Units White Blood Count 9.1 4.3-11.0 10^3/uL Red Blood Count 4.86 3.80-5.11 10^6/uL Hemoglobin 15.2 11.5-16.0 g/dL Hematocrit 45 35-52 % Mean Corpuscular Volume 92 80-99 fL Mean Corpuscular Hemoglobin 31 25-34 pg Mean Corpuscular Hemoglobin Concent 34 32-36 g/dL Red Cell Distribution Width 13.2 10.0-14.5 % Platelet Count 272 130-400 10^3/uL Mean Platelet Volume 9.5 9.0-12.2 fL Immature Granulocyte % (Auto) 1 % Neutrophils (%) (Auto) 57 42-75 % Lymphocytes (%) (Auto) 30 12-44 % Monocytes (%) (Auto) 10 0-12 % Eosinophils (%) (Auto) 2 0-10 % Basophils (%) (Auto) 1 0-10 % Neutrophils # (Auto) 5.2 1.8-7.8 X 10^3 Lymphocytes # (Auto) 2.7 1.0-4.0 X 10^3 Monocytes # (Auto) 0.9 0.0-1.0 X 10^3 Eosinophils # (Auto) 0.2 0.0-0.3 10^3/uL Basophils # (Auto) 0.1 0.0-0.1 10^3/uL Immature Granulocyte # (Auto) 0.1 0.0-0.1 10^3/uL Sodium Level 139 135-145 MMOL/L Potassium Level 3.6 3.6-5.0 MMOL/L Chloride Level 101 98-107 MMOL/L Carbon Dioxide Level 27 21-32 MMOL/L Anion Gap 11 5-14 MMOL/L Blood Urea Nitrogen 20 H 7-18 MG/DL Creatinine 0.64 0.60-1.30 MG/DL Estimat Glomerular Filtration Rate 91 BUN/Creatinine Ratio 31 Glucose Level 99 70-105 MG/DL Calcium Level 9.6 8.5-10.1 MG/DL Troponin I < 0.30 <0.30 NG/ML (YOSEPH WARNER MD) My Orders Orders - YOSEPH WARNER MD Amoxicillin Capsule (Polymox Capsule) (04/06/21 20:17) (YOSEPH WARNER MD) Medications Given in ED Current Medications Medications Dose Ordered Sig/Viry Route Start Time Stop Time Status Last Admin Dose Admin Acetaminophen 1,000 mg ONCE ONCE PO 04/06/21 19:00 04/06/21 19:01 DC 04/06/21 19:05 1,000 MG (YOSEPH WARNER MD) Vital Signs/I&O 04/06/21 18:05 Temp 36.5 Pulse 74 Resp 18 B/P (MAP) 201/78 (119) O2 Delivery Room Air (YOSEPH WARNER MD) Vital Signs/I&O Capillary Refill : Less Than 3 Seconds (SISI MATUTE MD) Blood Pressure Mean: 119 Progress Note : Time: 18:53 Progress Note Patient seen and evaluated, 71-year-old lady with a history of hypertension who presents with symptomatic elevated blood pressures in the 200/105 range. Patient relates to me that about 3-1/2 years ago she had hypertensive emergency requiring ICU admission. No etiology was found at that time. She states that she is compliant with her daily medications and denies any symptoms of illness preceding these last 2 days of high blood pressure. Evaluation today includes CBC, chemistry, EKG, chest x-ray, CT scan of the brain without contrast. EKG is unremarkable. As I am talking to the patient in the room her blood pressure seems to be decreasing. Initially blood pressures in the 200/100 range, now in the 170s over 80s range. Will offer little Tylenol for her headache. (SISI MATUET MD) Progress Note : Time: 20:25 Progress Note I assumed care of this patient from Dr. Matute at shift change. Labs have been reviewed. Systolic blood pressures have been in the 160s and patient's pain has improved with Tylenol alone. CT scan revealed acute sinusitis which we are treating with amoxicillin. I have discussed treatment plan. Patient does have Ultram at home she can take for further pain management. She states she tolerates it well. I encouraged her to take a dose of tramadol tonight when she returns home. See discharge instructions for further information. We did discuss causes of her hypertensive exacerbation. I suspect blood pressures are sensitive to a pain response. I have encouraged her to try to more tightly control her shoulder pain and headaches with both Tylenol and tramadol. Patient reports she has been advised to avoid NSAIDs by her copyright clerk. (YOSEPH WARNER MD) ECG Initial ECG Impression Date: Apr 06, 2021 Initial ECG Impression Time: 18:40 Initial ECG Rate: 66 Initial ECG Rhythm: Normal Sinus Initial ECG Intervals VT 162 QRS [address] QTc [address]-T wave changes in the precordial leads. No ST segment elevation or depression is noted. No ectopy is noted. Borderline QRS prolongation. (SISI MATUTE MD) Diagnostic Imaging Diagonstic Imaging: Xray Plain Films/CT/US/NM/MRI: chest Comments [facility]. [place], [place] NAME: DAWSON DOBBS [facility] REC#: [id number] PT STATUS: REG ER : 1950 PHYSICIAN: SISI MATUTE MD ADMIT DATE: 04/06/21/ER FS Signed Date of Exam:04/06/21 CHEST 1 VIEW AP/PA ONLY INDICATION: Hypertension. COMPARISON: 02/16/2016. FINDINGS: There is mild cardiomegaly. Lungs are otherwise clear. There is no pleural effusion or pneumothorax. The mediastinum is unremarkable. IMPRESSION: 1. Mild cardiomegaly. 2. No acute cardiopulmonary abnormality. Dictated by: Dictated on workstation # [id number] Dict: 04/06/[id number] Trans: 04/06/211902 [facility] [id number] Interpreted by: SOHA MORGAN MD Electronically signed by: SOHA MORGAN MD 04/06/211902 (SISI MATUTE MD) Diagonstic Imaging: CT Plain Films/CT/US/NM/MRI: head Comments CT head viewed by me and report reviewed. See report below: NAME: DAWSON DOBBS [facility] REC#: [id number] PT STATUS: REG ER : 1950 PHYSICIAN: SISI MATUTE MD ADMIT DATE: 04/06/21/ER FS Signed Date of Exam:04/06/21 CT HEAD WO EXAMINATION: CT head without contrast. TECHNIQUE: Multiple contiguous axial images were obtained through the brain without the use of intravenous contrast. All CT scans use one or more of the following dose optimizing techniques: automated exposure control, MA and/or KvP adjustment based on patient size and exam type or iterative reconstruction. HISTORY: Severe headache. High blood pressure. COMPARISON: 01/11/2021. FINDINGS: No large acute territorial ischemia or hemorrhage. Faint hyperattenuation is seen in the right frontal lobe representing previously noted cavernoma. No midline shift or mass effect. The ventricles, cortical sulci, and basilar cisterns are patent and unremarkable. The orbits are normal. Retained secretions are seen in the right maxillary and left sphenoid sinuses. Mastoid air cells are clear. No soft tissue abnormality is seen. No osseus lesions or fractures are seen. IMPRESSION: 1. No large acute territorial ischemia or hemorrhage. 2. Acute sinusitis involving the right maxillary and left sphenoid sinuses. Dictated by: Dictated on workstation # [id number] Dict: 04/06/[id number] Trans: 04/06/211905 [facility] [id number] Interpreted by: MELISA WOODALL DO Electronically signed by: MELISA WOODALL DO 04/06/211905 (YOSEPH WARNER MD) Departure Impression Primary Impression: Headache Qualified Codes: R51.9 - Headache, unspecified Additional Impressions: High blood pressure Qualified Codes: I10 - Essential (primary) hypertension Acute sinusitis Qualified Codes: J01.90 - Acute sinusitis, unspecified Disposition: 01 HOME, SELF-CARE Condition: Improved Departure-Patient Inst. Decision time for Depature: 20:19 (YOSEPH WARNER MD) Referrals: JAYLA KENDRICK DO (PCP/Family) Primary Care Physician Patient Instructions: Sinusitis in Adults Add. Discharge Instructions: For primary pain control you may use Tylenol (acetaminophen) up to 1000 mg every 6 hours as needed for pain. Do not exceed 4000 mg/day. Add Ultram (tramadol) as prescribed for pain not controlled by Tylenol. Be careful using tramadol until you know how it affects you as it may cause drowsiness. It may also cause constipation and you may benefit from a stool softener while using Ultram. Complete your antibiotics as prescribed for treatment of sinus infection. Use Flonase (fluticasone) 2 sprays per nostril twice a day for the next 3 or 4 days. Then use daily for at least a couple of weeks. Avoid things that may exacerbate your high blood pressure such as excessive salt, excessive caffeine, or other stimulants such as decongestants, diet pills, workout supplements, ADHD medications, etc. Follow-up with your primary care provider soon as possible. Call with questions or concerns. Return to the ER if you have worsening symptoms. All discharge instructions reviewed with patient and/or family. Voiced understanding. Scripts Amoxicillin (Amoxicillin) 500 Mg Capsule 1000 MG PO BID, #40 CAP 0 Refills Prov: YOSEPH WARNER MD 04/06/21 Copy Copies To 1: JAYLA KENDRICK KATHRYN M MD Apr 06, 2021 18:37 YOSEPH WARNER MD Apr 06, 2021 20:17
[2021-04-06 18:41] LABS: HEMATOCRIT 45 % (35-52); HEMOGLOBIN 15.2 g/dL (11.5-16.0); MEAN CORPUSCULAR HEMOGLOBIN 31 pg (25-34); MEAN CORPUSCULAR HGB CONC 34 g/dL (32-36); MEAN CORPUSCULAR VOLUME 92 fL (80-99); MEAN PLATELET VOLUME 9.5 fL (9.0-12.2); PLATELET COUNT 272 10^3/uL (130-400); WHITE BLOOD COUNT 9.1 10^3/uL (4.3-11.0)
[2021-04-06 18:42] LABS: BASOPHILS # (AUTO) 0.1 10^3/uL (0.0-0.1); BASOPHILS % (AUTO) 1 % (0-10); EOSINOPHILS # (AUTO) 0.2 10^3/uL (0.0-0.3); EOSINOPHILS % (AUTO) 2 % (0-10); LYMPHOCYTES # (AUTO) 2.7 X 10^3 (1.0-4.0); LYMPHOCYTES % (AUTO) 30 % (12-44); MONOCYTES # (AUTO) 0.9 X 10^3 (0.0-1.0); MONOCYTES % (AUTO) 10 % (0-12); NEUTROPHILS # (AUTO) 5.2 X 10^3 (1.8-7.8); NEUTROPHILS % (AUTO) 57 % (42-75)
[2021-04-06] MEDS ORDERED: ACETAMINOPHEN 500 MG TAB (TYLENOL) PO ONE (19:00)
--- NOTE | 2021-04-06 19:02 | Diagnostic Imaging Report ---
INDICATION: Hypertension. COMPARISON: 02/16/2016. FINDINGS: There is mild cardiomegaly. Lungs are otherwise clear. There is no pleural effusion or pneumothorax. The mediastinum is unremarkable. IMPRESSION: 1. Mild cardiomegaly. 2. No acute cardiopulmonary abnormality. Dictated by: Dictated on workstation # [id number]
[2021-04-06 19:05] LABS: CHLORIDE 101 MMOL/L (98-107); POTASSIUM 3.6 MMOL/L (3.6-5.0); SODIUM 139 MMOL/L (135-145)
[2021-04-06 19:06] LABS: BUN/CREATININE RATIO 31; CALCIUM 9.6 MG/DL (8.5-10.1); CARBON DIOXIDE 27 MMOL/L (21-32); CREATININE SERUM 0.64 MG/DL (0.60-1.30); GFR ESTIMATED 91; GLUCOSE 99 MG/DL (70-105)
--- NOTE | 2021-04-06 19:08 | Diagnostic Imaging Report ---
EXAMINATION: CT head without contrast. TECHNIQUE: Multiple contiguous axial images were obtained through the brain without the use of intravenous contrast. All CT scans use one or more of the following dose optimizing techniques: automated exposure control, MA and/or KvP adjustment based on patient size and exam type or iterative reconstruction. HISTORY: Severe headache. High blood pressure. COMPARISON: 01/11/2021. FINDINGS: No large acute territorial ischemia or hemorrhage. Faint hyperattenuation is seen in the right frontal lobe representing previously noted cavernoma. No midline shift or mass effect. The ventricles, cortical sulci, and basilar cisterns are patent and unremarkable. The orbits are normal. Retained secretions are seen in the right maxillary and left sphenoid sinuses. Mastoid air cells are clear. No soft tissue abnormality is seen. No osseus lesions or fractures are seen. IMPRESSION: 1. No large acute territorial ischemia or hemorrhage. 2. Acute sinusitis involving the right maxillary and left sphenoid sinuses. Dictated by: Dictated on workstation # [id number]
[2021-04-06] MEDS ORDERED: AMOXICILLIN 500 MG (POLYMOX) CAP PO STA (20:17)
[2021-04-06] MEDS ORDERED: AMOX500C2 PO (20:21)
[2021-04-06 20:30] VITALS: BP 167/70
== END 2021-04-06 20:30 | disposition home or self-care (01) ==
LOC: EDUNIT# 17:43 → ER FS 17:44
DX: I10 Essential (primary) hypertension (principal); J01.90 Acute sinusitis, unspecified
CPT/HCPCS: 36415; 70450; 71045; 80048; 84484; 85025; 93005

== ENCOUNTER → 2021-04-08 | Outpatient (CLI) | payer MEDICARE, OTHER ==
[~2021-04-08] MED LIST changes: +AMOX500C2 PO
--- NOTE | 2021-04-08 16:01 | Diagnostic Imaging Report ---
Indication: Routine screening. Comparison is made with prior mammogram from 01/14/2019 and 09/28/2017. 2-D and 3-D bilateral screening mammography was performed CAD. Scattered fibroglandular densities are identified bilaterally. Previously noted proximal asymmetry appears stable. There are scattered nodular densities throughout both breasts which appears stable. Benign calcifications are present. No spiculated mass or malignant-appearing microcalcifications are seen. Axillae are unremarkable. IMPRESSION: BI-RADS Category 2 No mammographic features suspicious for malignancy are identified. Dictated by: Dictated on workstation # [id number]
== END ==
LOC: RAD 09:45
PROVIDERS: ATTEND Surgery
DX: Z12.31 Encounter for screening mammogram for malignant neoplasm of breast (principal)
CPT/HCPCS: 77063; 77067

== ENCOUNTER 2021-04-26 14:39 | Outpatient (RCR) | payer MEDICARE, OTHER | END 2021-05-06 | disposition home or self-care (01) | LOC: ONC 14:39 | PROVIDERS: ATTEND Internal Medicine Hematology & Oncology | DX: C43.9 Malignant melanoma of skin, unspecified (principal); D47.2 Monoclonal gammopathy | CPT/HCPCS: 99213 ==

== ENCOUNTER → 2021-11-22 | Outpatient (CLI) | payer MEDICARE, OTHER | LOC: CARDFS 15:01 | PROVIDERS: ATTEND Physician Assistant | DX: I10 Essential (primary) hypertension (principal) | CPT/HCPCS: 93306 ==

== ENCOUNTER → 2021-11-30 | Outpatient (CLI) | payer MEDICARE, OTHER ==
[~2021-11-30] MED LIST changes: +CALC-308 PO; +CHOL-34 PO; +CIDE300T3 PO; +CYAN250014 PO; +IMMUNE SUPPORT PO; +LOSA1TAB23 PO; +MTP100TCR PO; +MULT-1136 PO; +OMG1KC PO; +PYRI50TA PO; +ZINC50TA51 PO
== END ==
LOC: RAD FS 10:30
PROVIDERS: ATTEND Nurse Practitioner Family
DX: C83.00 Small cell B-cell lymphoma, unspecified site (principal); I10 Essential (primary) hypertension; M75.121 Complete rotator cuff tear or rupture of right shoulder, not specified as traumatic; G47.00 Insomnia, unspecified; C43.9 Malignant melanoma of skin, unspecified; R19.01 Right upper quadrant abdominal swelling, mass and lump; R19.03 Right lower quadrant abdominal swelling, mass and lump; R05.9 Cough, unspecified; R60.9 Edema, unspecified

== ENCOUNTER → 2021-12-14 | Outpatient (CLI) | payer MEDICARE, OTHER ==
[~2021-12-14] VITALS: Ht 165 cm; Wt 104.0 kg
[~2021-12-14] MED LIST changes: -CALC-308 PO; -CHOL-34 PO; -CIDE300T3 PO; -CYAN250014 PO; -IMMUNE SUPPORT PO; -LOSA1TAB23 PO; -MTP100TCR PO; -MULT-1136 PO; -OMG1KC PO; -PYRI50TA PO; +REGADENOSON 0.4 MG/5 ML SYR (LEXISCAN) IV ONE; -ZINC50TA51 PO
[2021-12-14] MEDS: CATHETER FLUSH 10 ML SYR IVP PRN (08:22)
[2021-12-14 09:47] VITALS: BP 237/105
[2021-12-14] MEDS: REGADENOSON 0.4 MG/5 ML SYR (LEXISCAN) IV ONE (09:51)
[2021-12-14 09:59] VITALS: BP 169/95
--- NOTE | 2021-12-14 13:20 | Cardiology Stress Test Report ---
Stress Test Report Date of Procedure/Referring: Date of Procedure: Dec 14, 2021 PCP Jayla Last DO Admitting Physician Admitting Physician: Attending Physician: Ivana Garrido Indications: CAD Baseline Heart Rate: 58 Baseline Blood Pressure: Blood Pressure Systolic: 169 Blood Pressure Diastolic: 95 Baseline Vitals Vital Signs Date Time Temp Pulse Resp B/P (MAP) Pulse Ox O2 Delivery O2 Flow Rate FiO2 12/14/21 09:47 72 237/105 (149) Baseline EKG: Baseline EKG: NSR Summary After explaining the procedure to the patient, she signed a consent and then brought to the stress nuclear laboratory. Patient received 0.4 mg Lexiscan for stress test, ECG, heart rate and blood pressure were monitored continuously. Resting and stress dose of radio tracer were injected, imaging was acquired and reviewed in short axis, horizontal long axis and vertical long axis views. SSS: 10 SDS: 10 EF: 73 1. Patient tolerated Lexiscan well 2. Baseline severe hypertension persisted during test with blood pressure 237/105 3. Reversible ischemia involving the mid to apical anterior wall and apex 4. Normal left ventricular size, ejection fraction 73% Copy Copies To 1: JAYLA LAST BASHAR J MD Dec 14, 2021 13:20
== END ==
LOC: CARD 08:30
PROVIDERS: ATTEND Physician Assistant
DX: I65.23 Occlusion and stenosis of bilateral carotid arteries (principal); I25.10 Atherosclerotic heart disease of native coronary artery without angina pectoris
CPT/HCPCS: 78452; 93017; A9502

== ENCOUNTER 2021-12-28 09:00 | Day surgery (SDC) | payer MEDICARE, OTHER ==
[2021-12-28] VITALS (8 sets, daily range): BP systolic 140–192; BP diastolic 65–104
[~2021-12-28] VITALS: Ht 165.1 cm; Wt 104.3 kg
[2021-12-28 07:41] LABS: HEMATOCRIT 44 % (35-52); HEMOGLOBIN 14.8 g/dL (11.5-16.0); MEAN CORPUSCULAR HEMOGLOBIN 30 pg (25-34); MEAN CORPUSCULAR HGB CONC 34 g/dL (32-36); MEAN CORPUSCULAR VOLUME 91 fL (80-99); MEAN PLATELET VOLUME 9.1 fL (9.0-12.2); PLATELET COUNT 236 10^3/uL (130-400); WHITE BLOOD COUNT 9.4 10^3/uL (4.3-11.0)
--- NOTE | 2021-12-28 07:51 | Cardiac Procedure Note-CS/ASA ---
Pre-Procedure Note Pre-Op Procedure Note Date of Available H&P: Dec 28, 2021 Date H&P Reviewed: Dec 28, 2021 Time H&P Reviewed: 07:51 History & Physical: H&P Reviewed, Patient Examed, No changes noted Pre-Operative Diagnosis: CAD Conscious Sedation Pre-Proced Time 07:51 ASA Score 3 For ASA 3 and 4: Consider anesthesia and medical clearance. Also, for patients with a history of failed moderate sedation consider anesthesia. Airway Lungs Heart ASA score ASA 1: a normal healthy patient ASA 2: a patient with a mild systemic disease (mid diabetes, controlled hypertension, obesity ASA 3: a patient with a severe systemic disease that limits activity (angina, COPD, prior Myocardial infarction) ASA 4: a patient with an incapacitating disease that is a constant threat to life (CHF, renal failure) ASA 5: a moribund patient not expected to survive 24 hrs. (ruptured aneurysm) ASA 6: a declared brain- patient whose organs are being harvested. For emergent operations, add the letter E after the classification Mallampati Classification Grade 3 Sedation Plan Analgesia, Amnesia, Plan communicated to team members, Discussed options with patient/fam, Discussed risks with patient/fam The patient is an appropriate candidate to undergo the planned procedure, sedation, and anesthesia. The patient immediately re-assessed prior to indication. AIDEE DICKINSON MD Dec 28, 2021 07:51
--- NOTE | 2021-12-28 07:52 | Diagnostic Imaging Report ---
History: Abnormal stress test, history of chest pain and hypertension. Pre-operative evaluation of thoracic structures. COMPARISON: 04/06/2021 TECHNIQUE: Frontal view the chest FINDINGS: Lung volumes are mildly large. No consolidation is seen. There is no pleural effusion or pneumothorax. The cardiac silhouette is normal in size. There is a left shoulder arthroplasty. IMPRESSION: 1. No acute pulmonary abnormality. Dictated by: Dictated on workstation # [id number]
[2021-12-28 08:04] LABS: BILIRUBIN,TOTAL 0.8 MG/DL (0.1-1.0); CALCIUM 9.4 MG/DL (8.5-10.1); CREATININE SERUM 0.74 MG/DL (0.60-1.30); POTASSIUM 3.9 MMOL/L (3.6-5.0); TOTAL PROTEIN 7.5 GM/DL (6.4-8.2)
[2021-12-28 08:10] LABS: CLARITY,URINE CLEAR; COLOR,URINE YELLOW; GLUCOSE, URINE (UA) NEGATIVE (NEGATIVE); PROTEIN,URINE NEGATIVE (NEGATIVE); RBC,URINE RARE /HPF
[2021-12-28 08:11] LABS: BACTERIA,URINE NEGATIVE /HPF; BILIRUBIN,URINE NEGATIVE (NEGATIVE); KETONES,URINE NEGATIVE (NEGATIVE); LEUKOCYTE ESTERASE ,URINE NEGATIVE (NEGATIVE); NITRITE,URINE NEGATIVE (NEGATIVE); PROTHROMBIN TIME PATIENT 13.3 SEC (12.2-14.7)
--- NOTE | 2021-12-28 08:47 | Discharge Inst-Post CATH ---
Discharge Inst-CATH/EP Problems Reviewed?: Yes Post Cardiac Cath/EP D/C Inst Follow Up/Plan Appointment with Dr. Tatum's office in 2 to 4 weeks <b>CARDIAC CATH/EP PROCEDURE DISCHARGE INSTRUCTIONS</b> ACTIVITY * Go Home directly and rest. * Limit activity of the leg (or wrist if it was used) for 7 days including aer obics, swimming, jogging, bicycling, etc. * Restrict stair-climbing for 7 days if possible, if not, climb up with your non-cath leg, then bring together on the same step. * Avoid lifting, pushing, pulling or excessive movement of the affected extremi ty for 7 days. * Customary sexual activity may be resumed after 2 days-use caution not to use a position that strains or causes pain to the affected extremity. * No driving for 24 hours. * NO SMOKING. * Avoid straining for bowel movements for 7 days. * Gentle walking on level ground is allowed. * Returning to work will depend on the type of procedure and the results. Your doctor will discuss this with you. CALL YOUR DOCTOR FOR ANY OF THE FOLLOWING: *If bleeding from the puncture site occurs- Apply gentle pressure to site with clean cloth and call your doctor or EMS. * If a knot or lump forms under the skin, increases in size, or causes pain. * If bruising appears to be worsening or moving further down your leg instead of disappearing. * Temperature above 101 F. CARE OF YOUR GROIN INCISION; * Bruising or purple discoloration of the skin near the puncture site is common. * You may shower only, no bathtub bathing for 5 days. Be careful to avoid slipping as your leg may feel stiff. * If a closure device was used on your femoral artery, please see the attached guide regarding care of the device and your leg. * Leave dressing on FOR 24 hours. CARE OF YOUR WRIST INCISION; * Bruising or purple discoloration of the skin near the puncture site is common. * You may shower. * DO NOT submerge wrist. * Leave dressing on FOR 24 hours. AIDEE TATUM MD Dec 28, 2021 08:47
--- NOTE | 2021-12-28 08:57 | Cardiac Cath Report ---
Cardiac Cath Report Physician (s)/Ticket Broker (s) Physician AIDEE DICKINSON MD Pre-Procedure Diagnosis Pre-Procedure Diagnosis: CAD Post-Procedure Note Procedure Start Date: Dec 28, 2021 Name of Procedure: Left heart catheterization Findings/Procedure Note PROCEDURE NOTE: 71-year-old lady with history of coronary artery disease, hypertension and hyperlipidemia, had an abnormal stress test, has been having increasing dyspnea, scheduled for cardiac catheterization possible PTCA. After explaining the procedure to the patient, all pros and cons were explained, all questions were answered. The patient signed the consent and then she was placed on the cardiac catheterization laboratory. Groin was prepped SL fashion local anesthesia was used. Sheath placed in the right radial artery, [place] catheter was advanced to the left ventricular cavity, pressure was measured, pullback LV to aorta was done, engaged the right and left coronary system, angiogram was done. At the end of the procedure the sheath was removed. Vascular band was used FINDINGS: Hemodynamics LV 170/32, end-diastolic pressure of 32 Aorta 171/75 mean of 116 ANATOMY: Left Main is free of obstructive disease Left Anterior Descending is moderate in size, 40% stenosis in the mid LAD nonobstructive disease. Did not change compared to the previous study Left Circumflex is moderate in size with no obstructive disease Right Coronary Artery is dominant artery with mild disease nonobstructive disease LV Gram was not done, pressure was measured CONCLUSION: 1. 40% mid LAD stenosis nonobstructive disease. Otherwise no significant obst ructive disease 2. Elevated left ventricular end-diastolic pressure, probably secondary to hypertensive heart disease. DISCUSSION AND RECOMMENDATION: Continue to maximize medical therapy, no intervention is warranted Anesthesia Type: Conscious Sedation Estimated blood loss (mL): 10 ml Contrast Amount: 49 ml Total Radiation Dose: 450 mGy Post-Procedure Diagnosis Post-operative diagnosis: Shortness of breath Coronary artery disease Hypertension Hypertensive heart disease Hyperlipidemia AIDEE DICKINSON MD Dec 28, 2021 08:57
[~2021-12-28 09:00] MED LIST changes: +CALC-308 PO; +CHOL-34 PO; +CIDE300T3 PO; +CYAN250014 PO; +HEParin (CATH LAB) 2,000 ML IV ONE; +HEParin 1000 UNIT/ML (10ML VIAL) FOR BOLUS ONE; +IMMUNE SUPPORT PO; +LIDOCAINE 1% INJ 20 ML VIAL ONE; +LOSA1TAB23 PO; +MIDAZOLAM 5 MG/5 ML (VERSED) VIAL ONE; +MTP100TCR PO; +MULT-1136 PO; +NITRO DRIP 25000 MCG/D5W 250 ML IV ONE; +NS IV 1000 ML 1,000 ML IV SCH; +NS IV 1000 ML 1,000 ML ONE; +OMG1KC PO; +PYRI50TA PO; -REGADENOSON 0.4 MG/5 ML SYR (LEXISCAN) IV ONE; +VERAPAMIL 5 MG/2 ML (CALAN) VIAL IV ONE; +ZINC50TA51 PO; +diphenhydrAMINE 50 MG/ML INJ (BENADRYL) ONE; +fentaNYL INJ 100 MCG/2 ML AMP ONE; +methylPREDNISolone 125 MG (Solu-MEDROL) VIAL ONE
== END 2021-12-28 11:15 | disposition home or self-care (01) ==
LOC: CATH 09:00 → SDC 09:02 → CATH 11:15
PROVIDERS: ATTEND Internal Medicine Cardiovascular Disease
DX: I25.10 Atherosclerotic heart disease of native coronary artery without angina pectoris (principal); I11.9 Hypertensive heart disease without heart failure; E78.5 Hyperlipidemia, unspecified; C83.00 Small cell B-cell lymphoma, unspecified site; G47.33 Obstructive sleep apnea (adult) (pediatric); F41.9 Anxiety disorder, unspecified; R60.9 Edema, unspecified; I65.23 Occlusion and stenosis of bilateral carotid arteries; Z79.899 Other long term (current) drug therapy; Z85.820 Personal history of malignant melanoma of skin; Z88.5 Allergy status to narcotic agent; Z91.041 Radiographic dye allergy status; Z28.310 Unvaccinated for COVID-19
CPT/HCPCS: 36430; 71045; 80053; 80061; 81000; 85027; 85610; 85730; 87081; 93005; 93458; C1894; 36415

== ENCOUNTER → 2022-06-07 | Outpatient (CLI) | payer MEDICARE, OTHER ==
[~2022-06-07] MED LIST changes: -HEParin (CATH LAB) 2,000 ML IV ONE; -HEParin 1000 UNIT/ML (10ML VIAL) FOR BOLUS ONE; -LIDOCAINE 1% INJ 20 ML VIAL ONE; +LOSA-421 PO; -LOSA1TAB9 PO; -MIDAZOLAM 5 MG/5 ML (VERSED) VIAL ONE; -NITRO DRIP 25000 MCG/D5W 250 ML IV ONE; -NS IV 1000 ML 1,000 ML IV SCH; -NS IV 1000 ML 1,000 ML ONE; -VERAPAMIL 5 MG/2 ML (CALAN) VIAL IV ONE; -diphenhydrAMINE 50 MG/ML INJ (BENADRYL) ONE; -fentaNYL INJ 100 MCG/2 ML AMP ONE; -methylPREDNISolone 125 MG (Solu-MEDROL) VIAL ONE
--- NOTE | 2022-06-07 12:37 | Diagnostic Imaging Report ---
Indication: Routine screening. Comparison is made with prior mammogram 04/08/2021 and 01/14/2019. 2-D and 3-D bilateral screening mammography was performed with CAD. CAD is utilized. The current study was also evaluated with a Computer Aided Detection (CAD) system. Scattered fibroglandular densities are identified bilaterally. A nodular density in the superior right breast is stable. The nodular densities in the left breast appears stable. No new mass or malignant-appearing microcalcifications are seen. There are scattered benign calcifications present. The axillae are unremarkable. IMPRESSION: BI-RADS Category 2 No mammographic features suspicious for malignancy are identified. ACR BI-RADS Category 2: Benign findings. Result letter will be mailed to the patient. Note: At least 10% of breast cancer is not imaged by mammography. Dictated by: Dictated on workstation # [id number]
== END ==
LOC: RAD 10:31
PROVIDERS: ATTEND Surgery
DX: Z12.31 Encounter for screening mammogram for malignant neoplasm of breast (principal)
CPT/HCPCS: 77063; 77067